=== PATIENT | female | born 2000 | race Asian ===

== ENCOUNTER 2020-01-04 18:10 | Emergency (ER) | payer OTHER ==
[2020-01-04 18:23] VITALS: BP 138/77
--- NOTE | 2020-01-04 19:02 | ED ---
Upper Extremity Pain - HPI Summary HPI Summary: 19-year-old male presents with right elbow pain since yesterday. States that she felt she slept wrong and was unable to move her right elbow. She states that her range of motion has return today. She denies any fevers or chills. She denies any redness to the area. States that she's had occasional pain in the elbow before. Pain is mostly located in the lateral aspect. Is worse with certain wrist movements. She has no medical conditions. - History of Current Complaint Chief Complaint: EDExtremityUpper Stated Complaint: R ELBOW PAIN PER PT Time Seen by Provider: 01/04/20 18:44 - Allergies/Home Medications Allergies/Adverse Reactions: Allergies Allergy/AdvReac Type Severity Reaction Status Date / Time No Known Allergies Allergy Verified 01/04/20 18:23 PMH/Surg Hx/FS Hx/Imm Hx Endocrine/Hematology History: Denies: Hx Anticoagulant Therapy Respiratory History: Denies: Hx Asthma Infectious Disease History: No Infectious Disease History: Denies: Traveled Outside the [place] in Last 30 Days - Family History Known Family History: Positive: Non-Contributory - Social History Lives: With Family Smoking Status (MU): Never Smoked Tobacco Review of Systems Negative: Fever Negative: Chest Pain Negative: Shortness Of Breath Positive: Myalgia - right elbow pain All Other Systems Reviewed And Are Negative: Yes Physical Exam Triage Information Reviewed: Yes Vital Signs On Initial Exam: Initial Vitals Temp Pulse Resp BP Pulse Ox 99 F 67 16 138/77 98 01/04/20 18:20 01/04/20 18:20 01/04/20 18:20 01/04/20 18:20 01/04/20 18:20 Vital Signs Reviewed: Yes Appearance: Positive: Well-Appearing Skin: Positive: Warm, Dry Head/Face: Positive: Normal Head/Face Inspection Eyes: Positive: Normal, Conjunctiva Clear ENT: Positive: Pharynx normal Respiratory/Lung Sounds: Positive: Clear to Auscultation, Breath Sounds Present Cardiovascular: Positive: Normal, RRR Musculoskeletal: Positive: Strength/ROM Intact - right elbow, Other - tenderness right lateral epicondyle, tenderness with wrist extension, good pulses Neurological: Positive: Normal Psychiatric: Positive: Normal Procedures - Sedation Patient Received Moderate/Deep Sedation with Procedure: No Diagnostics - Vital Signs Vital Signs Temp Pulse Resp BP Pulse Ox 01/04/20 18:20 99 F 67 16 138/77 98 - Laboratory Lab Statement: Any lab studies that have been ordered have been reviewed, and results considered in the medical decision making process. - Radiology elbow Radiology Interpretation Completed By: ED Physician Summary of Radiographic Findings: no fracture Course/Dx - Course Course Of Treatment: 19-year-old male presents with right elbow pain since yesterday. States that she felt she slept wrong and was unable to move her right elbow. She states that her range of motion has return today. She denies any fevers or chills. She denies any redness to the area. States that she's had occasional pain in the elbow before. Pain is mostly located in the lateral aspect. Is worse with certain wrist movements. She has no medical conditions. On exam tenderness over lateral malleolus elbow. No signs of septic joint. X -ray shows no joint effusion or fracture. gave ole. told to treat with RICE. if no improvement told follow up with ortho. patient understand and agrees with plan. - Diagnoses Differential Diagnosis/HQI/PQRI: Positive: Fracture (Closed), Strain, Sprain Provider Diagnoses: Right elbow pain Discharge ED - Sign-Out/Discharge Documenting (check all that apply): Patient Departure - Discharge Plan Condition: Good Disposition: HOME Patient Education Materials: Elbow Sprain (ED) Referrals: No Primary Care Phys,NOPCP [Primary Care Provider] - Krzysztof Toscano MD [Medical Doctor] - Additional Instructions: Take Tylenol or ibuprofen every 6 hours as needed for pain Apply ice, rest, elevate Keep ole on area as needed Follow up with ortho if no improvement Return to ED if develop any fever, redness to area, or any new or worsening symptoms - Billing Disposition and Condition Condition: GOOD Disposition: Home
== END 2020-01-04 20:09 | disposition home or self-care (01) ==
LOC: ED 18:10
DX: M25.521 Pain in right elbow (principal)
CPT/HCPCS: 99282